=== PATIENT | male | born 1990 | race African-American/Black ===

== ENCOUNTER 2016-10-14 14:21 | Emergency (ER) | payer SELFPAY ==
[~2016-10-14] VITALS: Ht 170.2 cm; Wt 60.0 kg
[2016-10-14 15:37] VITALS: BP 116/80
[2016-10-14] MEDS: IBUPROFEN 600MG TABLET PO ONE (15:37)
== END 2016-10-14 15:50 | disposition home or self-care (01) ==
LOC: ER 15:24
DX: S16.1XXA Strain of muscle, fascia and tendon at neck level, initial encounter (principal); V49.88XA Car occupant (driver) (passenger) injured in other specified transport accidents, initial encounter; W22.11XA Striking against or struck by driver side automobile airbag, initial encounter; Y93.89 Activity, other specified; Y92.89 Other specified places as the place of occurrence of the external cause; Y99.8 Other external cause status
CPT/HCPCS: 99283